=== PATIENT | female | born 1940 | race Caucasian/White ===

== ENCOUNTER 2018-10-10 12:20 | Emergency (ER) | payer MEDICARE ==
[~2018-10-10] VITALS: Ht 149.9 cm; Wt 38.0 kg
[~2018-10-10 12:20] MED LIST: ASPI-1159 MT; ATOR40TA70 MT; CLOP75TA33 MT
[2018-10-10 14:12] LABS: BASOPHILS % 0.7 % (0.0-2.0); EOSINOPHILS % 0.7 % (0.0-5.0); HEMATOCRIT. 39.9 % (36.0-48.0); HEMOGLOBIN. 13.7 g/dL (12.0-16.0); LYMPHOCYTES % 31.4 % (20.0-50.0); MEAN CORPUSCULAR HEMOGLOBIN 32.1 pg (28.0-32.0); MEAN CORPUSCULAR VOLUME 93.9 fL (81.0-99.0); MEAN PLATELET VOLUME 8.6 fl (7.4-10.4); MONOCYTES % 8.8 % (2.0-8.0); NEUTROPHILS % 58.4 % (40.0-76.0); PLATELET 190 x1000/uL (130-400); RED BLOOD CELL COUNT 4.25 mill/uL (4.2-5.4)
[2018-10-10 14:18] LABS: CHLORIDE 104 mEq/L (98-107)
[2018-10-10 14:53] VITALS: BP 137/73
== END 2018-10-10 15:31 | disposition home or self-care (01) ==
LOC: ER 15:13
DX: R00.2 Palpitations (principal); E78.00 Pure hypercholesterolemia, unspecified; R42 Dizziness and giddiness; R11.0 Nausea; Z98.890 Other specified postprocedural states; Z79.82 Long term (current) use of aspirin; Z88.6 Allergy status to analgesic agent; Z88.5 Allergy status to narcotic agent; Z88.8 Allergy status to other drugs, medicaments and biological substances; Z88.2 Allergy status to sulfonamides
CPT/HCPCS: 36415; 71045; 84484; 93005; 99285